=== PATIENT | male | born 2000 | race Caucasian/White ===

== ENCOUNTER 2019-07-01 21:54 | Emergency (ER) | payer MEDICAID ==
[~2019-07-01] VITALS: Ht 175.3 cm; Wt 112.5 kg
[2019-07-01 21:58] VITALS: BP 141/77; Ht 175.3 cm; Wt 112.5 kg
== END 2019-07-01 23:06 | disposition home or self-care (01) ==
LOC: ED 21:54
DX: S40.861A Insect bite (nonvenomous) of right upper arm, initial encounter (principal); L03.113 Cellulitis of right upper limb; W57.XXXA Bitten or stung by nonvenomous insect and other nonvenomous arthropods, initial encounter; Y93.89 Activity, other specified; Y92.89 Other specified places as the place of occurrence of the external cause; Y99.8 Other external cause status
CPT/HCPCS: Q0163

== ENCOUNTER 2020-05-18 01:57 | Emergency (ER) | payer MEDICAID ==
[~2020-05-18] VITALS: Ht 175.3 cm; Wt 111.1 kg
[2020-05-18 01:59] VITALS: BP 126/54; Ht 175.3 cm; Wt 111.1 kg
== END 2020-05-18 02:32 | disposition home or self-care (01) ==
LOC: ED 01:57
DX: U07.1 COVID-19 (principal); R19.7 Diarrhea, unspecified